=== PATIENT | male | born 1980 | race African-American/Black ===

== ENCOUNTER 2019-05-10 18:03 | Emergency (ER) | payer SELFPAY ==
[~2019-05-10] VITALS: Ht 180.3 cm; Wt 94.7 kg
--- NOTE | 2019-05-10 18:24 | NUR ---
NA X 1 IN TRIAGE
[2019-05-10] MEDS ORDERED: LORazepam 1MG TABLET PO ONE (19:00)
--- NOTE | 2019-05-10 19:18 | NUR ---
PT AT XRAY
[2019-05-10] MEDS ORDERED: LORazepam 1MG TABLET ONE (19:24)
--- NOTE | 2019-05-10 19:29 | NUR ---
PT RESTING CALMLY ON CELL PHONE, DENIES NEEDS AT THIS TIME, REFUSED NEED FOR ATIVAN AT THIS TIME, MONITORS IN PLACE, CALL LIGHTWITHIN REACH. AWAITING LAB AND XRAY RESULTS
[2019-05-10 19:33] LABS: BASOPHILS # (AUTO) 0.05 x10^3/uL (0-0.1); BASOPHILS % (AUTO) 1 % (0-1); EOSINOPHILS # (AUTO) 0.05 x10^3/uL (0-0.4); EOSINOPHILS % (AUTO) 1 % (1-7); LYMPHOCYTES # (AUTO) 2.12 x10^3/uL (1-3.4); LYMPHOCYTES % (AUTO) 27 % (22-44); MD NO; MEAN CORPUSCULAR HEMOGLOBIN 32.8 pg (27.5-34.5); MEAN CORPUSCULAR HGB CONC 33.4 g/dL (33.2-36.2); MEAN CORPUSCULAR VOLUME 98.3 fL (81-97); MEAN PLATELET VOLUME 10.1 fL (7.4-10.4); MONOCYTES # (AUTO) 0.39 x10^3/uL (0.2-0.8); MONOCYTES % (AUTO) 5 % (2-9); NEUTROPHILS # (AUTO) 5.36 x10^3/uL (1.8-6.8); NEUTROPHILS % (AUTO) 67 % (42-75); PLATELET COUNT 155 x10^3/uL (130-400); RED BLOOD COUNT 5.16 x10^6/uL (4.38-5.82)
[2019-05-10 19:45] LABS: ANION GAP 8 mmol/L (5-15); CALCIUM 8.9 mg/dL (8.5-10.1); CHLORIDE 108 mmol/L (98-107)
[2019-05-10 19:50] LABS: CREATININE 1.07 mg/dL (0.7-1.3); TROPONIN I < 0.015 ng/mL (0.000-0.045)
[2019-05-10 20:30] VITALS: BP 110/68
--- NOTE | 2019-05-10 20:31 | NUR ---
PT RESTING ON GURNEY, DENIES NEEDS AT THIS TIME, MONITORS IN PLACE, CALL LIGHT WITHIN REACH. AWAITING ERP RECHECK
[2019-05-10] MEDS ORDERED: ACETAMINOPHEN 325 MG TABLET ONE (20:50)
--- NOTE | 2019-05-10 20:53 | NUR ---
PT C/O H/A, ERP NOTIFIED, ORDER RECEIVED FOR TYLENOL. PT MEDICATED PER JAN, PROVIDED PT WITH SNACK
[2019-05-10] MEDS ORDERED: ACETAMINOPHEN 325 MG TABLET PO ONE (21:00)
== END 2019-05-10 21:39 | disposition home or self-care (01) ==
LOC: ED 20:11
DX: R07.89 Other chest pain (principal); F41.1 Generalized anxiety disorder
CPT/HCPCS: 36415; 71046; 74021; 80048; 82040; 84484; 85025; 93005; 99284